=== PATIENT | female | born 1980 | race Caucasian/White ===

== ENCOUNTER 2016-11-12 10:53 | Emergency (ER) | payer MEDICAID ==
[2016-11-12] MEDS ORDERED: ONDANSETRON 4 MG/2 ML VIAL IVP STA (11:18)
[2016-11-12] MEDS ORDERED: HYDROmorphone 1 MG/ML SYRINGE IVP STA (11:18)
[2016-11-12] MEDS ORDERED: SODIUM CHLORIDE 0.9% 1,000 ML IV ONE (11:19)
[2016-11-12] MEDS ORDERED: HYDROmorphone 1 MG/ML SYRINGE ONE (11:49)
[2016-11-12] MEDS ORDERED: ONDANSETRON 4 MG/2 ML VIAL ONE (11:49)
== END 2016-11-12 14:04 | disposition home or self-care (01) ==
DX: R10.31 Right lower quadrant pain (principal); J45.909 Unspecified asthma, uncomplicated; M79.7 Fibromyalgia
CPT/HCPCS: 36415; 74176; 80053; 81003; 81025; 83690; 85025; 96361; 96374; 96375; 99284; J1170

== ENCOUNTER 2016-12-25 15:03 | Emergency (ER) | payer MEDICAID ==
[2016-12-25 15:10] VITALS: BP 134/78
[2016-12-25] MEDS ORDERED: PHENAZOPYRIDINE 100 MG TABLET PO STA (15:21)
--- NOTE | 2016-12-25 15:23 | ED Physician Documentation ---
History of Present Illness - Stated complaint Stated Complaint: AB PX/BACK PX - Chief complaint Chief Complaint: UTI - Additonal information Additional information: hx from pt 35 y/o female 1 wk fever nausea dysuria diffuse L > R abd pain, tiffanie flank pain - sx c/w prior pyelo LMP now no vag dc monogamous relationship, she and partner both recently tested and neg for STD denies preg s.p tubal, D&c, c sections, LEEP Review of Systems Constitutional: reports: Fever Cardiac: denies: Chest pain / pressure Respiratory: denies: Dyspnea GI: reports: Abdominal Pain, Nausea. denies: Vomiting : reports: Dysuria, Hesitancy, Control (tubal). 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: Miscarriage(s) : Chronic bladder infection HEENT: None Psych: Depression, Anxiety Musculoskeletal: Fibromyalgia Derm: None - Past Surgical History Past Surgical History: Yes /GOLD MINER BLASTING: section, Dilation and currettage - Present Medications Home Medications: Ambulatory Orders Medication Instructions Recorded Confirmed Cetirizine [ZyrTEC] 1 tab PO DAILY 11/12/16 11/12/16 Fexofenadine/Pseudoephedrine 1 tab PO DAILY 11/12/16 11/12/16 [Ml-D 24 Hour Tablet] HYDROcod/ACETAM 5/325 [[place] 5/325] 1 - 2 ea PO Q6H PRN #20 tablet 11/12/16 Ibuprofen [Motrin] 400 mg PO Q6H PRN #30 tablet 12/25/16 Ondansetron Odt [Zofran] 4 mg TL Q6H PRN #10 tablet 12/25/16 - Allergies Allergies/Adverse Reactions: Allergies Allergy/AdvReac Type Severity Reaction Status Date / Time iodine Allergy Intermediate Rash Verified 11/12/16 11:04 Penicillins Allergy Intermediate Rash Verified 11/12/16 11:04 - Social History Does the pt smoke?: No Smoking Status: Never smoker Does the pt drink ETOH?: Yes Does the pt have substance abuse?: No - Immunizations Immunizations are current?: Yes - POLST Patient has POLST: No PD ED PE NORMAL - Vitals Vital signs reviewed: Yes - Neck Neck: Supple, no meningeal sign - Cardiac Cardiac: RRR - Respiratory Respiratory: No respiratory distress, Clear bilaterally - Abdomen Abdomen: Soft, Other (mild diffuseL mid abd > rest, no rebound or guarding) - Female Female : Deferred (denies vag dc and low risk for STD by hx (recently tested for same) will add on urine STD with pt permission) - Back Back: No CVA TTP (mild R CVA TTP) - Neuro Neuro: Alert and oriented X 3 - Psych Psych: Normal mood Results - Vitals Vitals: Vital Signs - 24 hr 12/25/16 15:08 Temperature 37 C Heart Rate 93 Respiratory 22 Rate Blood Pressure 134/78 H O2 Saturation 98 Oxygen O2 Source Room air - Labs Labs: Laboratory Tests 12/25/16 12/25/16 12/25/16 15:30 16:35 16:35 WBC 11.0 H RBC 4.24 Hgb 13.9 Hct 39.1 MCV 92.3 MCH 32.7 H MCHC 35.4 RDW 12.6 Plt Count 202 MPV 9.9 Neut # 7.3 H Lymph # 2.6 [place] # 0.7 Eos # 0.2 Baso # 0.1 Absolute Nucleated RBC 0.00 Nucleated RBCs 0.0 Sodium 138 Potassium 4.0 Chloride 104 Carbon Dioxide 27 Anion Gap 7.0 BUN 13 Creatinine 0.8 Estimated GFR (MDRD) 82 L Glucose 95 Calcium 8.7 Total Bilirubin 0.5 AST 19 ALT 21 Alkaline Phosphatase 65 Total Protein 7.3 Albumin 4.0 Globulin 3.3 Albumin/Globulin Ratio 1.2 Lipase 27 Urine Color YELLOW Urine Clarity CLEAR Urine pH 7.5 Ur Specific [place] 1.020 Urine Protein TRACE Urine Glucose (UA) NEGATIVE Urine Ketones NEGATIVE Urine Occult Blood TRACE-INTA Urine Nitrite NEGATIVE Urine Bilirubin NEGATIVE Urine Urobilinogen 0.2 (NORMAL) Ur Leukocyte Esterase NEGATIVE Ur Microscopic Review NOT INDICATED Urine Culture Comments NOT INDICATED Urine HCG, Qual NEGATIVE - Rads (name of study) CT abd pelvis Radiology: See rad report (no acute process) PD MEDICAL DECISION MAKING - ED course ED course: UA neg will need further eval of her abd pain ordered labs and CT Departure - Departure Disposition: 01 Home, Self Care Clinical Impression: Abdominal pain Qualifiers: Abdominal location: left lower quadrant Qualified Code(s): R10.32 - Left lower quadrant pain Condition: Fair Instructions: ED Abdominal Pain Unkn Cause Follow-Up: Iqra Lopez ARNP [Primary Care Provider] - (for a recheck next week unless completely better) Prescriptions: Ibuprofen [Motrin] 400 mg PO Q6H PRN #30 tablet PRN Reason: Pain Ondansetron Odt [Zofran] 4 mg TL Q6H PRN #10 tablet PRN Reason: Nausea / Vomiting Comments: All of the tests today came back fine. The urine showed no sign of a kidney infection The blood work including kidney liver and pancreas function was fine. The CT scan did not show any gallstones or kidney stones, no pancreatitis, no aneurysm, no bowel infection/perforation/obstruction, no internal bleeding or free fluid, normal size ovaries I am not sure what is causing the pain But given the extensive and reassuring workup, I do not think you need surgery or admission or antibiotics. I think it is safe for you to go home and to get any further work up as an outpatient It is very possible that over time, new or changing symptoms may develop that lead to a diagnosis not presently apparent. That is why close follow up with your PMD for a recheck is very important I do not recommend any strong pain killers because I do not want to mask changing or worsening symptoms - recommend motrin and tylenol for pain and zofran as needed for nausea or vomiting Also please follow up with your PMD about your blood pressure - it was high today Forms: Activity restrictions
[2016-12-25] MEDS ORDERED: PHENAZOPYRIDINE 100 MG TABLET PO ONE (15:28)
[2016-12-25 15:42] LABS: BILIRUBIN,URINE NEGATIVE (NEGATIVE); PH,URINE 7.5 PH (5.0-7.5)
[2016-12-25 15:45] LABS: HCG UR QUAL NEGATIVE; UA CHARGE (STRIP ONLY) YES; UR CULTURE IF IND NOT INDICATED
[2016-12-25] MEDS ORDERED: KETOROLAC 60 MG/2 ML VIAL IVP STA (16:25)
[2016-12-25] MEDS ORDERED: KETOROLAC 30 MG/ML VIAL ONE (16:27)
[2016-12-25 16:47] LABS: BASOPHILS # (AUTO) 0.1 10^3/uL (0.0-0.1); BASOPHILS % (AUTO) 0.8 %; EOSINOPHILS # (AUTO) 0.2 10^3/uL (0.0-0.7); EOSINOPHILS % (AUTO) 2.1 %; HCT - HEMATOCRIT 39.1 % (37.0-47.0); HGB - HEMOGLOBIN 13.9 g/dL (12.0-16.0); LYMPHOCYTES # (AUTO) 2.6 10^3/uL (1.5-3.5); MEAN CORPUSCULAR HEMOGLOBIN 32.7 pg (27.0-31.0); MEAN CORPUSCULAR HGB CONC 35.4 g/dL (32.0-36.0); MEAN CORPUSCULAR VOLUME 92.3 fL (81.0-99.0); MEAN PLATELET VOLUME 9.9 fL (7.9-10.8); MONOCYTES # (AUTO) 0.7 10^3/uL (0.0-1.0); MONOCYTES % (AUTO) 6.6 %; NEUTROPHILS # (AUTO) 7.3 10^3/uL (1.5-6.6); NEUTROPHILS % (AUTO) 66.5 %; RED BLOOD COUNT 4.24 10^6/uL (4.20-5.40); RED CELL DISTRIBUTION WIDTH 12.6 % (12.0-15.0)
[2016-12-25 16:59] LABS: ALBUMIN/GLOBULIN RATIO 1.2 (1.0-2.2); BILIRUBIN,TOTAL 0.5 mg/dL (0.2-1.0); CALCIUM 8.7 mg/dL (8.5-10.3); CREATININE 0.8 mg/dL (0.4-1.0); TOTAL PROTEIN 7.3 g/dL (6.7-8.2)
--- NOTE | 2016-12-25 17:41 | CT Preliminary Report ---
Exam: CT Abdomen/Pelvis W/O IMPRESSION: No calculi or evidence of obstruction along the genitourinary tracts. Within the limits of noncontras t examination, no altered acute process identified to explain abdominal flank pain. [facility] SITE ID: [id number]
--- NOTE | 2016-12-25 17:44 | CT Report ---
EXAM: CT ABDOMEN AND PELVIS (CT KUB) EXAM DATE: 12/25/2016 04:54 PM. CLINICAL HISTORY: Left abdominal and flank pain. COMPARISONS: 11/12/2016. TECHNIQUE: Routine axial helical CT imaging was performed through the abdomen and pelvis without IV c ontrast. Reconstructions: Coronal and sagittal. In accordance with CT protocol optimization, one or more of the following dose reduction techniques w ere utilized for this exam: automated exposure control, adjustment of mA and/or KV based on patient s ize, or use of iterative reconstructive technique. FINDINGS: Lung Bases: Tiny calcified granuloma in the right lower lobe. Mild dependent atelectasis in the right lower lobe. Right Kidney/Ureter: No stones, hydronephrosis, or hydroureter. No perinephric fat stranding. Left Kidney/Ureter: No stones, hydronephrosis, or hydroureter. No perinephric fat stranding. Other Solid Organs: Noncontrast images of the solid organs are grossly unremarkable. Gallbladder/Bile Ducts: Unremarkable. Peritoneal Cavity: The bowel is grossly unremarkable, without evident focal wall thickening or adjace nt mesenteric fat stranding to suggest acute inflammatory process, or evidence of bowel obstruction. The appendix is normal. No free fluid, pneumoperitoneum, or janki adenopathy. Pelvic Organs: No bladder stones or wall thickening. Noncontrast images of the visualized pelvic orga ns are unremarkable. Vasculature: Unremarkable. Bones: Unremarkable. Other: Unchanged small fat-containing hernia, without evidence of inflammation. IMPRESSION: No calculi or evidence of obstruction along the genitourinary tracts. Within the limits of noncontras t examination, no altered acute process identified to explain abdominal flank pain. [facility] Referring Provider Line: [phone] SITE ID: [id number]
== END 2016-12-25 18:45 | disposition home or self-care (01) ==
LOC: ED 15:03
DX: R10.32 Left lower quadrant pain (principal); R11.0 Nausea; R03.0 Elevated blood-pressure reading, without diagnosis of hypertension
CPT/HCPCS: 36415; 74176; 80053; 81003; 81025; 83690; 85025; 87491; 87591; 96374; 99283; 99284; A9270; 81001; 87086

== ENCOUNTER 2017-01-31 20:37 | Emergency (ER) | payer MEDICAID ==
[2017-01-31] MEDS ORDERED: SODIUM CHLORIDE 0.9% 1,000 ML IV ONE (22:20)
--- NOTE | 2017-01-31 22:21 | ED Physician Documentation ---
PD HPI NVD - Stated complaint Stated Complaint: DIARRHEA X'S 1 WK - Chief complaint Chief Complaint: Abd Pain - History obtained from History obtained from: Patient - History of Present Illness Timing - onset: How many weeks ago (1) Timing - duration: Weeks (1) Timing - details: Still present Associated symptoms: No: Fever Contributing factors: Travel Similar symptoms before: Has not had sx before - Additonal information Additional information: The patient is a 36-year-old female who recently returned from a trip to [facility]. She presents with diarrhea that started the day before she left [facility], and discontinued for the past week. She has had numerous episodes of watery diarrhea. She denies fever or vomiting, but has had mild nausea, and mild associated cramping abdominal discomfort. She denies history of similar symptoms in the past. Her child who is traveling with her has not become ill with similar symptoms. Review of Systems Constitutional: denies: Fever Nose: denies: Congestion Throat: denies: Sore throat Cardiac: denies: Chest pain / pressure Respiratory: denies: Dyspnea, Cough GI: reports: Abdominal Pain (Mild cramping pain.), Nausea (mild), Diarrhea. denies: Vomiting : denies: Dysuria Skin: denies: Rash Musculoskeletal: denies: Back pain Neurologic: denies: Focal weakness, Numbness, Syncope, Headache PD PAST MEDICAL HISTORY - Past Medical History Cardiovascular: None Respiratory: None, Asthma Neuro: Headache/migraine, Motion sickness Endocrine/Autoimmune: None GI: None [employer]: Miscarriage(s) : Chronic bladder infection HEENT: None Psych: Depression, Anxiety Musculoskeletal: Fibromyalgia Derm: None - Past Surgical History Past Surgical History: Yes /[employer]: section, Dilation and currettage - Present Medications Home Medications: Ambulatory Orders Medication Instructions Recorded Confirmed Cetirizine [ZyrTEC] 1 tab PO DAILY 11/12/16 11/12/16 Fexofenadine/Pseudoephedrine 1 tab PO DAILY 11/12/16 11/12/16 [Ml-D 24 Hour Tablet] HYDROcod/ACETAM 5/325 [[place] 5/325] 1 - 2 ea PO Q6H PRN #20 tablet 11/12/16 Ibuprofen [Motrin] 400 mg PO Q6H PRN #30 tablet 12/25/16 Ondansetron Odt [Zofran] 4 mg TL Q6H PRN #10 tablet 12/25/16 Loperamide [Imodium] 2 mg PO BID PRN #10 capsule 02/01/17 - Allergies Allergies/Adverse Reactions: Allergies Allergy/AdvReac Type Severity Reaction Status Date / Time iodine Allergy Intermediate Rash Verified 01/31/17 21:28 Penicillins Allergy Intermediate Rash Verified 01/31/17 21:28 - Social History Does the pt smoke?: No Smoking Status: Never smoker Does the pt drink ETOH?: Yes Does the pt have substance abuse?: No - Immunizations Immunizations are current?: Yes - POLST Patient has POLST: No PD ED PE NORMAL - Vitals Vital signs reviewed: Yes (normal) - General General: Alert and oriented X 3, Well developed/nourished - HEENT HEENT: Atraumatic, EOMI, Pharynx benign - Neck Neck: Supple, no meningeal sign, No adenopathy - Cardiac Cardiac: RRR, No murmur - Respiratory Respiratory: No respiratory distress, Clear bilaterally - Abdomen Abdomen: Normal bowel sounds, Soft, Non tender, No organomegaly - Back Back: No CVA TTP - Derm Derm: No rash - Extremities Extremities: No edema, No calf tenderness / cord - Neuro Neuro: Alert and oriented X 3, No motor deficit, Normal speech Results - Vitals Vitals: Vital Signs - 24 hr 02/01/17 02/01/17 00:24 01:30 Temperature 36.5 C Heart Rate 97 92 Respiratory 14 14 Rate Blood Pressure 123/75 134/85 H O2 Saturation 96 100 Oxygen O2 Source Room air - Labs Labs: Microbiology 01/31/17 23:25 Campylobacter Antigen Assay - Final Stool Stool Culture - Preliminary Laboratory Tests 01/31/17 01/31/17 22:58 22:58 WBC 11.1 H RBC 4.62 Hgb 14.3 Hct 41.1 MCV 88.8 MCH 30.9 MCHC 34.7 RDW 12.0 Plt Count 221 MPV 9.9 Neut # 7.4 H Lymph # 2.8 [place] # 0.7 Eos # 0.2 Baso # 0.0 Absolute Nucleated RBC 0.00 Nucleated RBCs 0.0 Sodium 137 Potassium 3.6 Chloride 102 Carbon Dioxide 25 Anion Gap 10.0 BUN 13 Creatinine 0.8 Estimated GFR (MDRD) 82 L Glucose 95 Calcium 9.4 Total Bilirubin 0.4 AST 20 ALT 25 Alkaline Phosphatase 68 Total Protein 8.1 Albumin 4.3 Globulin 3.8 Albumin/Globulin Ratio 1.1 Lipase 43 PD MEDICAL DECISION MAKING - ED course Complexity details: reviewed results, re-evaluated patient, considered differential, d/w patient ED course: The patient's presentation is significant for diarrhea of one week's duration, with onset while traveling in [facility]. She is nontoxic appearing, and is otherwise relatively asymptomatic. CBC is essentially normal with white count of thigh and of normal at 11.1. Chemistry panel is normal. Treatment in the emergency department included administration of normal saline 1 L IV. A stool sample was collected, and results are pending. She is being discharged with prescription for Imodium. I discussed with her the results of her workup, symptomatic treatment and outpatient follow-up, as well as potentially worrisome signs or symptoms that should prompt reevaluation in the emergency department. Departure - Departure Disposition: 01 Home, Self Care Clinical Impression: Diarrhea in adult patient Instructions: ED Diet Vomiting Diarrhea Follow-Up: Iqra Lopez ARNP [Primary Care Provider] - Prescriptions: Loperamide [Imodium] 2 mg PO BID PRN #10 capsule PRN Reason: Diarrhea Comments: 1. Drink plenty of fluids. 2. You can use Imodium as prescribed if needed for persistent diarrhea. 3. Follow up with your primary physician within one week. Call to schedule an appointment. 4. Return to the emergency department if you develop increasing abdominal pain, dehydration, or otherwise worsening symptoms. Discharge Date/Time: 02/01/17 01:34
[2017-01-31 23:07] LABS: BASOPHILS % (AUTO) 0.4 %; EOSINOPHILS # (AUTO) 0.2 10^3/uL (0.0-0.7); EOSINOPHILS % (AUTO) 1.8 %; HCT - HEMATOCRIT 41.1 % (37.0-47.0); HGB - HEMOGLOBIN 14.3 g/dL (12.0-16.0); LYMPHOCYTES # (AUTO) 2.8 10^3/uL (1.5-3.5); MEAN CORPUSCULAR HEMOGLOBIN 30.9 pg (27.0-31.0); MEAN CORPUSCULAR HGB CONC 34.7 g/dL (32.0-36.0); MEAN CORPUSCULAR VOLUME 88.8 fL (81.0-99.0); MEAN PLATELET VOLUME 9.9 fL (7.9-10.8); MONOCYTES # (AUTO) 0.7 10^3/uL (0.0-1.0); MONOCYTES % (AUTO) 6.3 %; NEUTROPHILS # (AUTO) 7.4 10^3/uL (1.5-6.6); NEUTROPHILS % (AUTO) 66.5 %; RED BLOOD COUNT 4.62 10^6/uL (4.20-5.40); UNCORRECTED WHITE BLOOD COUNT 11.1 x10^3/uL; WHITE BLOOD COUNT 11.1 x10^3/uL (4.8-10.8)
[2017-01-31 23:19] LABS: ALBUMIN/GLOBULIN RATIO 1.1 (1.0-2.2); BILIRUBIN,TOTAL 0.4 mg/dL (0.2-1.0); CALCIUM 9.4 mg/dL (8.5-10.3); CREATININE 0.8 mg/dL (0.4-1.0); POTASSIUM 3.6 mmol/L (3.5-5.0); TOTAL PROTEIN 8.1 g/dL (6.7-8.2)
[2017-02-01 01:34] VITALS: BP 134/85
== END 2017-02-01 01:34 | disposition home or self-care (01) ==
LOC: ED 20:37
DX: R19.7 Diarrhea, unspecified (principal)
CPT/HCPCS: 36415; 80053; 83690; 85025; 87045; 87046; 87077; 96360; 99283

== ENCOUNTER 2017-02-05 10:02 | Outpatient (CLI) | payer MEDICAID ==
[2017-02-09 14:51] LABS: TEST RESULT REPORT (())
== END 2017-02-05 10:03 | disposition home or self-care (01) ==
LOC: LAB.N 10:02
PROVIDERS: ATTEND Physician Assistant
DX: R19.7 Diarrhea, unspecified (principal)
CPT/HCPCS: 81599; 83630; 87045; 87046; 87177; 87209; 87329; 87338

== ENCOUNTER 2017-05-30 15:15 | Emergency (ER) | payer MEDICAID ==
[2017-05-30] MEDS ORDERED: diphenhydrAMINE INJ 50 MG/ML VIAL IM STA (15:58)
[2017-05-30] MEDS ORDERED: KETOROLAC 60 MG/2 ML VIAL IM STA (15:58)
[2017-05-30] MEDS ORDERED: PROCHLORPERAZINE 10 MG/2 ML VIAL IM STA (15:58)
--- NOTE | 2017-05-30 16:05 | ED Physician Documentation ---
PD HPI HEADACHE - Stated complaint Stated Complaint: HEADACHE - Chief complaint Chief Complaint: Neuro - History obtained from History obtained from: Patient, Family - History of Present Illness Timing - onset: Today Timing - onset during: Sleep Timing - duration: Days (1) Timing - details: Other (awoke with this headache) Pain level max: 8 Pain level now: 8 Location: Left Quality: Throbbing, Aching. No: [place] Associated symptoms: Nausea. No: Fever, Stiff neck, Vomiting, Weakness, Numbness, Syncope, Seizure Improved by: Rest, Dark room, Meds (maxalt) Worsened by: Light, Noise, Moving Contributing factors: No: Anticoagulated, Possible carbon monoxide, Recent illness, Trauma Similar symptoms before: Diagnosis (migraine) Review of Systems Ten Systems: 10 systems reviewed and negative Constitutional: denies: Fever, Chills Eyes: reports: Photophobia Ears: denies: Ear pain Nose: denies: Rhinorrhea / runny nose, Congestion Throat: denies: Sore throat Cardiac: denies: Chest pain / pressure Respiratory: denies: Cough GI: reports: Nausea. 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: Miscarriage(s) : Chronic bladder infection HEENT: None Psych: Depression, Anxiety Musculoskeletal: Fibromyalgia Derm: None - Past Surgical History Past Surgical History: Yes /BARGEMAN: section, Dilation and currettage - Present Medications Home Medications: Ambulatory Orders Medication Instructions Recorded Confirmed Cetirizine [ZyrTEC] 1 tab PO DAILY 11/12/16 05/30/17 Fexofenadine/Pseudoephedrine 1 tab PO DAILY 11/12/16 05/30/17 [Ml-D 24 Hour Tablet] HYDROcod/ACETAM 5/325 [[place] 5/325] 1 - 2 ea PO Q6H PRN #20 tablet 11/12/1607/04 Rizatriptan Benzoate [Maxalt] 5 mg PO DAILY PRN 05/30/17 05/30/17 - Allergies Allergies/Adverse Reactions: Allergies Allergy/AdvReac Type Severity Reaction Status Date / Time iodine Allergy Intermediate Rash Verified 05/30/17 15:26 Penicillins Allergy Intermediate Rash Verified 05/30/17 15:26 - Social History Does the pt smoke?: No Smoking Status: Never smoker Does the pt drink ETOH?: Yes Does the pt have substance abuse?: No - Immunizations Immunizations are current?: Yes - POLST Patient has POLST: No PD ED PE NORMAL - Vitals Vital signs reviewed: Yes - General General: Alert and oriented X 3, No acute distress, Well developed/nourished, Other (lying in darkened room with sunglasses on) - HEENT HEENT: PERRL, Moist mucous membranes, Pharynx benign - Neck Neck: Supple, no meningeal sign - Cardiac Cardiac: RRR - Respiratory Respiratory: No respiratory distress, Clear bilaterally - Abdomen Abdomen: Soft, Non tender, Non distended - Derm Derm: Warm and dry, No rash - Extremities Extremities: No edema - Neuro Neuro: Alert and oriented 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, 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 Given Toradol, Benadryl, Compazine. Headache resolved. She is well-appearing, nontoxic. Afebrile. No evidence of subarachnoid hemorrhage, tumor. Normal neurological exam. Patient counseled regarding signs and symptoms for which I believe and urgent re-evaluation would be necessary. Patient with good understanding of and agreement to plan and is comfortable going home at this time. is driving. This document was made in part using voice recognition software. While efforts are made to proofread this document, sound alike and grammatical errors may occur. Departure - Departure Disposition: Home, Self Care Clinical Impression: Migraine Qualifiers: Migraine type: unspecified Status migrainosus presence: without status migrainosus Intractability: not intractable Qualified Code(s): G43.909 - Migraine, unspecified, not intractable, without status migrainosus Condition: Good Instructions: ED Headache Migraine Follow-Up: Iqra Lopez ARNP [Primary Care Provider] - As Needed Comments: Return if you worsen. Do not drive tonight Forms: Activity restrictions Discharge Date/Time: 05/30/17 17:20
[2017-05-30] MEDS ORDERED: KETOROLAC 60 MG/2 ML VIAL ONE (16:12)
[2017-05-30] MEDS ORDERED: diphenhydrAMINE INJ 50 MG/ML VIAL ONE (16:12)
[2017-05-30] MEDS ORDERED: PROCHLORPERAZINE 10 MG/2 ML VIAL ONE (16:12)
[2017-05-30 16:53] VITALS: BP 107/60
== END 2017-05-30 17:20 | disposition home or self-care (01) ==
LOC: ED 15:15
DX: G43.909 Migraine, unspecified, not intractable, without status migrainosus (principal)
CPT/HCPCS: 96372; 99283

== ENCOUNTER 2017-06-02 17:38 | Emergency (ER) | payer MEDICAID ==
[2017-06-02 17:58] VITALS: BP 115/80
== END 2017-06-02 18:03 | disposition left against medical advice (07) ==
LOC: ED 17:38
DX: Z53.21 Procedure and treatment not carried out due to patient leaving prior to being seen by health care provider (principal)

== ENCOUNTER 2017-12-25 21:30 | Emergency (ER) | payer MEDICAID ==
[2017-12-25 21:37] VITALS: BP 131/81
[2017-12-25 22:08] LABS: BILIRUBIN,URINE NEGATIVE (NEGATIVE); GLUCOSE, URINE (UA) NEGATIVE (NEGATIVE); KETONES,URINE (UA) NEGATIVE (NEGATIVE); LEUKOCYTE ESTERASE, URINE NEGATIVE (NEGATIVE); NITRITE,URINE NEGATIVE (NEGATIVE); OCCULT BLOOD,URINE SMALL (NEGATIVE); PH,URINE 7.5 PH (5.0-7.5); PROTEIN,URINE NEGATIVE (NEGATIVE); UROBILINOGEN,URINE 0.2 (NORMAL) E.U./dL (NORMAL)
[2017-12-25 22:11] LABS: CLARITY,URINE HAZY (CLEAR); HCG UR QUAL NEGATIVE
--- NOTE | 2017-12-25 22:21 | ED Physician Documentation ---
PD HPI FEMALE - Stated complaint Stated Complaint: FEMALE - Chief complaint Chief Complaint: Abd Pain - History obtained from History obtained from: Patient - History of Present Illness Timing - onset: How many weeks ago (4) Timing - details: Gradual onset, Intermittant Similar symptoms before: No diagnosis Recently seen: Clinic - Additional information Additional information: Patient is a 36 year old female with a history of fibromyalgia who is presenting to the emergency department for dysuria. According to patient over the last month or so patient has had intermittent episodes of lower bladder pain and dysuria. Patient states that she normally drinks extra fluid and cranberry juice and it goes away. Patient has worked with her pmd, every time she checks the urine there is no sign of infection. 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 and currettage - Present Medications Home Medications: Ambulatory Orders Medication Instructions Recorded Confirmed Rizatriptan Benzoate [Maxalt] 5 mg PO DAILY PRN 05/30/17 06/02/17 Phenazopyridine HCl [Pyridium] 200 mg PO TID PRN #6 tablet 12/25/17 - Allergies Allergies/Adverse Reactions: Allergies Allergy/AdvReac Type Severity Reaction Status Date / Time iodine Allergy Intermediate Rash Verified 06/02/17 17:57 Penicillins Allergy Intermediate Rash Verified 06/02/17 17:57 - Social History Does the pt smoke?: No Smoking Status: Never smoker Does the pt drink ETOH?: Yes Does the pt have substance abuse?: No - Immunizations Immunizations are current?: Yes - POLST Patient has POLST: No PD ED PE NORMAL - Vitals Vital signs reviewed: Yes - General General: Alert and oriented X 3, No acute distress - HEENT HEENT: Atraumatic - Neck Neck: Supple, no meningeal sign - Cardiac Cardiac: RRR - Respiratory Respiratory: No respiratory distress - Abdomen Abdomen: Non tender - Female Female : Deferred - Derm Derm: Normal color, Warm and dry - Extremities Extremities: No deformity - Neuro Neuro: Alert and oriented X 3 Eye Opening: Spontaneous Results - Vitals Vitals: Vital Signs - 24 hr 12/25/17 21:34 Temperature 36.3 C L Heart Rate 82 Respiratory 18 Rate Blood Pressure 131/81 H O2 Saturation 100 Oxygen O2 Source Room air - Labs Labs: Laboratory Tests 12/25/17 21:58 Urine Color YELLOW Urine Clarity HAZY Urine pH 7.5 Ur Specific [place] 1.015 Urine Protein NEGATIVE Urine Glucose (UA) NEGATIVE Urine Ketones NEGATIVE Urine Occult Blood SMALL H Urine Nitrite NEGATIVE Urine Bilirubin NEGATIVE Urine Urobilinogen 0.2 (NORMAL) Ur Leukocyte Esterase NEGATIVE Urine RBC 0-5 Urine WBC 0-3 Ur Squamous Epith Cells FEW Squamous Amorphous Sediment Few Urine Bacteria Rare Ur Microscopic Review INDICATED Urine Culture Comments NOT INDICATED Urine HCG, Qual NEGATIVE PD MEDICAL DECISION MAKING - ED course Complexity details: reviewed old records, reviewed results, re-evaluated patient , considered differential, d/w patient, d/w family ED course: Patient was seen and examined at bedside. patient was well appearing and in no distress. urine was collected and again showed no signs of infection. patient' s symptoms were more consistent with interstitial cystitis. Patient was given detailed discharge and follow up instructions and was stable for discharge with outpatient follow up. - Sepsis Event Vital Signs: Vital Signs - 24 hr 12/25/17 21:34 Temperature 36.3 C L Heart Rate 82 Respiratory 18 Rate Blood Pressure 131/81 H O2 Saturation 100 Oxygen O2 Source Room air Departure - Departure Disposition: 01 Home, Self Care Clinical Impression: Interstitial cystitis Condition: Good Instructions: Cystitis Interstitial Life Changes Follow-Up: [facility] [Provider Group] Prescriptions: Phenazopyridine HCl [Pyridium] 200 mg PO TID PRN #6 tablet PRN Reason: dysuria Comments: Your diagnostics today were within normal limits. Your symptoms could be caused by interstitial cystitis. You should try the dietary changes, (decrease acidic foods, spicey foods, coffee). The next step would be a cystoscopy by a urologist. You should follow up with your doctor to schedule speciality care. you may return to the emergency department at any time for new, worsening or uncontrollable symptoms.
[2017-12-25 22:37] LABS: AMORPHOUS SEDIMENT,UR Few /LPF; BACTERIA,URINE Rare /HPF (None Seen); RBC,URINE 0-5 /HPF (0-5); SQUAMOUS EPITHELIAL CELL,UR FEW Squamous (<= Few)
[2017-12-25] MEDS ORDERED: PHENAZOPYRIDINE 100 MG TABLET PO STA (22:58)
[2017-12-25] MEDS ORDERED: IBUPROFEN 600 MG TABLET PO STA (22:58)
== END 2017-12-25 23:16 | disposition home or self-care (01) ==
LOC: ED 21:30
DX: N30.10 Interstitial cystitis (chronic) without hematuria (principal); M79.7 Fibromyalgia; J45.909 Unspecified asthma, uncomplicated
CPT/HCPCS: 81001; 81025; 99283; A9270; 81003; 87086

== ENCOUNTER 2017-12-31 16:43 | Outpatient (CLI) | payer MEDICAID ==
[2017-12-31 19:23] LABS: AMORPHOUS SEDIMENT,UR Marked /LPF; BACTERIA,URINE None Seen /HPF (None Seen); RBC,URINE 0-5 /HPF (0-5); SQUAMOUS EPITHELIAL CELL,UR MOD Squamous (<= Few); WBC CLUMPS,URINE NONE SEEN
== END 2017-12-31 16:44 | disposition home or self-care (01) ==
LOC: LAB.R 16:43
PROVIDERS: ATTEND Family Medicine
DX: R30.0 Dysuria (principal)
CPT/HCPCS: 87086

== ENCOUNTER 2018-01-05 20:33 | Emergency (ER) | payer MEDICAID ==
[2018-01-05 21:20] LABS: BILIRUBIN,URINE NEGATIVE (NEGATIVE); GLUCOSE, URINE (UA) 100 mg/dL (NEGATIVE); KETONES,URINE (UA) NEGATIVE (NEGATIVE); LEUKOCYTE ESTERASE, URINE NEGATIVE (NEGATIVE); NITRITE,URINE POSITIVE (NEGATIVE); OCCULT BLOOD,URINE NEGATIVE (NEGATIVE); PROTEIN,URINE TRACE mg/dL (NEGATIVE); UROBILINOGEN,URINE 2 E.U./dL (NORMAL)
--- NOTE | 2018-01-05 21:22 | ED Physician Documentation ---
PD HPI FEMALE - Stated complaint Stated Complaint: FEMALE /BACK PX - Chief complaint Chief Complaint: Abd Pain - History obtained from History obtained from: Patient - History of Present Illness Timing - onset: How many days ago (few) Timing - duration: Days Timing - details: Gradual onset, Still present, Waxing and waning Associated symptoms: Abdominal pain, Dysuria, Urinary frequency. No: Fever, Vaginal pain, Vaginal discharge, Genital sore/lesion Contributing factors: Sexually active. No: Exposed to STD Recently seen: Clinic, Emergency Dept (had had few visits over few months with dysuria and normal UAs, Dx with presumed interstitial cystitis. recurrent symptoms however and worse the past couple days.) Review of Systems Constitutional: reports: Myalgias. denies: Fever, Chills Nose: denies: Rhinorrhea / runny nose, Congestion Throat: denies: Sore throat Respiratory: denies: Cough GI: reports: Abdominal Pain. denies: Nausea, Vomiting, Diarrhea : reports: Dysuria, Frequency. 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: Miscarriage(s) : Chronic bladder infection HEENT: None Psych: Depression, Anxiety Musculoskeletal: Fibromyalgia Derm: None - Past Surgical History Past Surgical History: Yes /MACHINE FILLER SHREDDER: section, Dilation and currettage - Present Medications Home Medications: Ambulatory Orders Medication Instructions Recorded Confirmed Rizatriptan Benzoate [Maxalt] 5 mg PO DAILY PRN 05/30/17 06/02/17 Phenazopyridine HCl [Pyridium] 200 mg PO TID PRN #6 tablet 12/25/17 Metronidazole [Flagyl] 500 mg PO BID #14 tablet 01/05/18 Sulfamethox/Trimeth 800/160 1 each PO BID #12 tablet 01/05/18 [Bactrim Ds 800/160] - Allergies Allergies/Adverse Reactions: Allergies Allergy/AdvReac Type Severity Reaction Status Date / Time iodine Allergy Intermediate Rash Verified 01/05/18 20:42 Penicillins Allergy Intermediate Rash Verified 01/05/18 20:42 - Social History Does the pt smoke?: No Smoking Status: Never smoker Does the pt drink ETOH?: Yes Does the pt have substance abuse?: No - Immunizations Immunizations are current?: Yes - POLST Patient has POLST: No PD ED PE NORMAL - Vitals Vital signs reviewed: Yes - General General: Alert and oriented X 3, No acute distress, Well developed/nourished - HEENT HEENT: Pharynx benign - Neck Neck: Supple, no meningeal sign, No adenopathy - Cardiac Cardiac: RRR, No murmur - Respiratory Respiratory: Clear bilaterally - Abdomen Abdomen: Normal bowel sounds, Soft, Non tender, Non distended - Female Female : Stencil Cutter present, Other (has normal external exam. Vault with thin mucous/white discharge and slight malodor c/w BV. ) - Rectal Rectal: Deferred - Back Back: Other (mild, more on right) Results - Vitals Vitals: Oxygen O2 Source Room air - Labs Labs: Microbiology 01/05/18 20:07 Wet Prep - Final Genital - Cervix Laboratory Tests 01/05/18 21:10 Urine Color ORANGE Urine Clarity CLEAR Urine pH 7.0 Ur Specific [place] <=1.005 Urine Protein TRACE Urine Glucose (UA) 100 H Urine Ketones NEGATIVE Urine Occult Blood NEGATIVE Urine Nitrite POSITIVE H Urine Bilirubin NEGATIVE Urine Urobilinogen 2 H Ur Leukocyte Esterase NEGATIVE Urine RBC 0-5 Urine WBC 11-25 H Ur Squamous Epith Cells MOD Squamous H Urine Bacteria Few Ur Microscopic Review INDICATED Urine Culture Comments NOT INDICATED Urine HCG, Qual NEGATIVE PD MEDICAL DECISION MAKING - ED course Complexity details: reviewed old records, reviewed results (her urine does look like UTI but would not explain prior episodes with normal UA. So did pelvic as well, with clinically appearance of vaginitis. ), considered differential (had had dysuria without UTI several times. Did not have pelvic exam at any visit. discussed possible vaginitis as cause. and she agreed to pelvic, said had not been offered/discussed previously. ), d/w patient - Sepsis Event Vital Signs: Oxygen O2 Source Room air Departure - Departure Disposition: Home, Self Care Clinical Impression: Dysuria UTI (urinary tract infection) Qualifiers: Urinary tract infection type: acute cystitis Hematuria presence: without hematuria Qualified Code(s): N30.00 - Acute cystitis without hematuria Vaginitis Qualifiers: Chronicity: subacute Qualified Code(s): N76.1 - Subacute and chronic vaginitis Condition: Stable Record reviewed to determine appropriate education?: Yes Instructions: ED UTI Cystitis Female, ED Vaginosis Bacterial Follow-Up: Iqra Lopez ARNP [Primary Care Provider] - Prescriptions: Metronidazole [Flagyl] 500 mg PO BID #14 tablet Sulfamethox/Trimeth 800/160 [Bactrim Ds 800/160] 1 each PO BID #12 tablet Comments: This time your urine actually does have the appearance of a bladder infection. However you have been having a lot of dysuria with normal urines and so it may have been some inflammatory interstitial cystitis. However your pelvic exam does have a mild discharge which is suggestive of a bacterial vaginitis. This can cause the same symptoms. We should treat that with the antibiotic more specific to BV. The culture results from the vaginal exam and the urine will result in 2 or 3 days and will tell us if we need to amend the antibiotic choice. Naproxen twice daily for inflammation. Follow-up with your primary care next week for reevaluation and to follow-up on culture results. Discharge Date/Time: 01/05/18 22:40
[2018-01-05 21:36] LABS: CLARITY,URINE CLEAR (CLEAR); HCG UR QUAL NEGATIVE
[2018-01-05 21:37] LABS: BACTERIA,URINE Few /HPF (None Seen); RBC,URINE 0-5 /HPF (0-5); SQUAMOUS EPITHELIAL CELL,UR MOD Squamous (<= Few)
[2018-01-05] MEDS ORDERED: FLUCONAZOLE 100 MG TABLET PO STA (22:23)
[2018-01-05] MEDS ORDERED: SULFAMETH/TRIMETH DS 800/160 MG TABLET PO STA (22:23)
[2018-01-05] MEDS ORDERED: metroNIDAZOLE 250 MG TABLET PO STA (22:23)
[2018-01-05] MEDS ORDERED: DEXAMETHASONE 10 MG/ML VIAL PO STA (22:29)
[2018-01-05 22:40] VITALS: BP 129/89
== END 2018-01-05 22:40 | disposition home or self-care (01) ==
LOC: ED 20:33
DX: N30.00 Acute cystitis without hematuria (principal); N76.1 Subacute and chronic vaginitis
CPT/HCPCS: 81001; 81025; 87210; 87491; 87591; 99283; A9270; 81003; 87086

== ENCOUNTER 2018-09-29 13:33 | Emergency (ER) | payer MEDICAID ==
[2018-09-29 15:23] LABS: BILIRUBIN,URINE NEGATIVE (NEGATIVE); GLUCOSE, URINE (UA) NEGATIVE (NEGATIVE); KETONES,URINE (UA) TRACE mg/dL (NEGATIVE); LEUKOCYTE ESTERASE, URINE NEGATIVE (NEGATIVE); NITRITE,URINE NEGATIVE (NEGATIVE); OCCULT BLOOD,URINE TRACE-INTA (NEGATIVE); PH,URINE 7.5 PH (5.0-7.5); PROTEIN,URINE NEGATIVE (NEGATIVE); UROBILINOGEN,URINE 0.2 (NORMAL) E.U./dL (NORMAL)
[2018-09-29 15:26] LABS: CLARITY,URINE CLOUDY (CLEAR); HCG UR QUAL NEGATIVE
[2018-09-29 15:34] LABS: RBC,URINE 0-5 /HPF (0-5); SQUAMOUS EPITHELIAL CELL,UR RARE Squamous (<= Few)
[2018-09-29 15:37] LABS: AMORPHOUS SEDIMENT,UR Moderate /LPF; BACTERIA,URINE None Seen /HPF (None Seen)
[2018-09-29] MEDS ORDERED: PROCHLORPERAZINE 10 MG/2 ML VIAL IVP STA (16:26)
[2018-09-29] MEDS ORDERED: KETOROLAC 30 MG/ML VIAL IVP STA (16:26)
[2018-09-29] MEDS ORDERED: diphenhydrAMINE INJ 50 MG/ML VIAL IVP STA (16:26)
[2018-09-29] MEDS ORDERED: SODIUM CHLORIDE 0.9% 1,000 ML IV ONE (16:26)
--- NOTE | 2018-09-29 16:31 | ED Physician Documentation ---
PD HPI HEADACHE - Stated complaint Stated Complaint: MIGRAINE/SYNCOPE - Chief complaint Chief Complaint: Neuro - History obtained from History obtained from: Patient - History of Present Illness Timing - onset: How many days ago (3) Timing - onset during: Rest Timing - duration: Days (3) Timing - details: Gradual onset Pain level max: 8 Pain level now: 8 Worst headache ever?: No: Worst headache ever? Location: Global Quality: Throbbing, Aching. No: Thunderclap Associated symptoms: Nausea. No: Fever, Stiff neck, Vomiting, Weakness, Numbness, Syncope, Seizure, Eye pain, Vision changes Improved by: Rest, Dark room Worsened by: Light, Noise Similar symptoms before: Diagnosis (Chronic migraine headaches) Recently seen: Not recently seen Review of Systems Constitutional: denies: Fever, Chills Ears: denies: Ear pain Nose: denies: Rhinorrhea / runny nose, Congestion Throat: denies: Sore throat Cardiac: denies: Chest pain / pressure, Palpitations Respiratory: denies: Cough GI: reports: Nausea. denies: Diarrhea : denies: Now EGA Musculoskeletal: denies: Neck pain, Back pain Neurologic: reports: Syncope (She states she has been feeling lightheaded when standing, she had an episode of worsening pain and feels like she may have passed out in the bathroom.). 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: Miscarriage(s) : Chronic bladder infection HEENT: None Psych: Depression, Anxiety Musculoskeletal: Fibromyalgia Derm: None - Past Surgical History Past Surgical History: Yes /WARRANT CLERK: section, Dilation and currettage - Present Medications Home Medications: Ambulatory Orders Medication Instructions Recorded Confirmed Rizatriptan Benzoate [Maxalt] 5 mg PO DAILY PRN 05/30/17 06/02/17 Phenazopyridine HCl [Pyridium] 200 mg PO TID PRN #6 tablet 12/25/17 Metronidazole [Flagyl] 500 mg PO BID #14 tablet 01/05/18 Sulfamethox/Trimeth 800/160 1 each PO BID #12 tablet 01/05/18 [Bactrim Ds 800/160] - Allergies Allergies/Adverse Reactions: Allergies Allergy/AdvReac Type Severity Reaction Status Date / Time iodine Allergy Intermediate Rash Verified 09/29/18 13:37 Penicillins Allergy Intermediate Rash Verified 09/29/18 13:37 - Social History Does the pt smoke?: No Smoking Status: Never smoker Does the pt drink ETOH?: Yes ETOH Use: Wine, Beer Does the pt have substance abuse?: No - Immunizations Immunizations are current?: Yes - POLST Patient has POLST: No PD ED PE NORMAL - Vitals Vital signs reviewed: Yes - General General: Alert and oriented X 3, No acute distress, Well developed/nourished - HEENT HEENT: Atraumatic, PERRL, EOMI, Ears normal, Moist mucous membranes, Pharynx benign - Neck Neck: Supple, no meningeal sign - Cardiac Cardiac: RRR, No murmur, Strong equal pulses - Respiratory Respiratory: No respiratory distress, Clear bilaterally - Abdomen Abdomen: Soft, Non tender, Non distended - Derm Derm: Warm and dry, No rash - Extremities Extremities: No edema, No calf tenderness / cord - Neuro Neuro: Alert and oriented X 3, slip sheeter 2-12 intact, No motor deficit, No sensory deficit, Normal speech Eye Opening: Spontaneous Motor: Obeys Commands Verbal: Oriented GCS Score: 15 - Psych Psych: Normal mood, Normal affect Results - Vitals Vitals: Oxygen O2 Source Room air - EKG (time done) 1445 Rate: Rate (enter#) (89) Rhythm: NSR Unity: Normal Intervals: Normal MA QRS: Normal Ischemia: Normal ST segments Computer interpretation: Agree with computer - Labs Labs: Laboratory Tests 09/29/18 15:10 Urine Color YELLOW Urine Clarity CLOUDY Urine pH 7.5 Ur Specific [place] 1.015 Urine Protein NEGATIVE Urine Glucose (UA) NEGATIVE Urine Ketones TRACE Urine Occult Blood TRACE-INTA Urine Nitrite NEGATIVE Urine Bilirubin NEGATIVE Urine Urobilinogen 0.2 (NORMAL) Ur Leukocyte Esterase NEGATIVE Urine RBC 0-5 Urine WBC 0-3 Ur Squamous Epith Cells RARE Squamous Amorphous Sediment Moderate Urine Bacteria None Seen Ur Microscopic Review INDICATED Urine Culture Comments NOT INDICATED Urine HCG, Qual NEGATIVE PD MEDICAL DECISION MAKING - ED course Complexity details: re-evaluated patient, considered differential, d/w patient, d/w family ED course: 37-year-old female with a migraine headache. Treated in the emergency department. Tolerated well. Feels better after fluids and medication for headache. We will have her follow-up with her doctor for further care. No evidence of subarachnoid hemorrhage, tumor, meningitis or encephalitis. Patient counseled regarding signs and symptoms for which I believe and urgent re-e valuation would be necessary. Patient with good understanding of and agreement to plan and is comfortable going home at this time This document was made in part using voice recognition software. While efforts are made to proofread this document, sound alike and grammatical errors may occur. Departure - Departure Disposition: 01 Home, Self Care Clinical Impression: Vasovagal syncope Migraine Qualifiers: Migraine type: unspecified Status migrainosus presence: without status migrainosus Intractability: not intractable Qualified Code(s): G43.909 - Migraine, unspecified, not intractable, without status migrainosus Condition: Good Instructions: ED Headache Migraine, ED Syncope Vasovagal Follow-Up: Iqra Lopez ARNP [Primary Care Provider] - Within 1 week Comments: Go home and rest. Return if you worsen. This should improve with the medications you were given tonight. Discharge Date/Time: 09/29/18 18:08
[2018-09-29 18:07] VITALS: BP 129/91
== END 2018-09-29 18:08 | disposition home or self-care (01) ==
LOC: ED 13:33
DX: G43.909 Migraine, unspecified, not intractable, without status migrainosus (principal); R55 Syncope and collapse
CPT/HCPCS: 81001; 81025; 93005; 96361; 96374; 99283; 99284; J1200; 81003; 87086

== ENCOUNTER 2018-12-18 09:36 | Emergency (ER) | payer MEDICAID ==
[2018-12-18 09:43] VITALS: BP 116/68
[2018-12-18] MEDS ORDERED: HYDROcod/ACETAM 5/325 MG TABLET PO STA (10:00)
--- NOTE | 2018-12-18 10:17 | ED Physician Documentation ---
History of Present Illness - Stated complaint Stated Complaint: RIB PX - Chief complaint Chief Complaint: Back Pain - History obtained from History obtained from: Patient - History of Present Illness Timing: How many days ago (3) Pain level max: 8 Pain level now: 8 - Additonal information Additional information: Patient was running and fell 3 days ago. landed on L side. now increased pain. worse with palpation and better with rest. 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: Miscarriage(s) : Chronic bladder infection HEENT: None Psych: Depression, Anxiety Musculoskeletal: Fibromyalgia Derm: None - Past Surgical History Past Surgical History: Yes /MOLD CHIPPER: section, Dilation and currettage - Present Medications Home Medications: Ambulatory Orders Medication Instructions Recorded Confirmed Rizatriptan Benzoate [Maxalt] 5 mg PO DAILY PRN 05/30/17 06/02/17 Phenazopyridine HCl [Pyridium] 200 mg PO TID PRN #6 tablet 12/25/17 Metronidazole [Flagyl] 500 mg PO BID #14 tablet 01/05/18 Sulfamethox/Trimeth 800/160 1 each PO BID #12 tablet 01/05/18 [Bactrim Ds 800/160] Hydrocodone/Acetaminophen 1 - 2 each PO Q6H PRN #20 tablet 12/18/18 [Hydrocodon-Acetaminophen 5-325] Ibuprofen [Motrin] 800 mg PO Q8H PRN #30 tablet 12/18/18 - Allergies Allergies/Adverse Reactions: Allergies Allergy/AdvReac Type Severity Reaction Status Date / Time iodine Allergy Intermediate Rash Verified 12/18/18 09:43 Penicillins Allergy Intermediate Rash Verified 12/18/18 09:43 - Social History Does the pt smoke?: No Smoking Status: Never smoker Does the pt drink ETOH?: Yes Does the pt have substance abuse?: No - Immunizations Immunizations are current?: Yes - POLST Patient has POLST: No PD ED PE NORMAL - Vitals Vital signs reviewed: Yes - General General: Alert and oriented X 3, No acute distress - HEENT HEENT: Moist mucous membranes - Neck Neck: Supple, no meningeal sign - Cardiac Cardiac: RRR - Respiratory Respiratory: No respiratory distress, Clear bilaterally - Abdomen Abdomen: Soft, Non tender, Non distended - Derm Derm: Warm and dry - Extremities Extremities: Other (TTP L lower ribs. No ecchymosis or crepitus.) - Neuro Neuro: Alert and oriented X 3 - Psych Psych: Normal mood, Normal affect Results - Vitals Vitals: Vital Signs - 24 hr 12/18/18 12/18/18 09:42 10:17 Temperature 36.6 C Heart Rate 68 Respiratory 18 Rate Blood Pressure 116/68 O2 Saturation 99 Oxygen O2 Source Room air - Rads (name of study) L ribs w/ chest Radiology: Prelim report reviewed, EMP read contemporaneously, See rad report (normal) PD MEDICAL DECISION MAKING - ED course Complexity details: reviewed results, considered differential, d/w patient ED course: 37-year-old female with a trip and fall while running. Left-sided rib pain. Read as normal by radiology, but appears to have a nondisplaced fracture on my review of the x-rays. Will treat with pain medication and follow-up with her doctor. Patient counseled regarding signs and symptoms for which I believe and urgent re-evaluation would be necessary. Patient with good understanding of and agreement to plan and is comfortable going home at this time This document was made in part using voice recognition software. While efforts are made to proofread this document, sound alike and grammatical errors may occur. Departure - Departure Disposition: 01 Home, Self Care Clinical Impression: Rib fracture Qualifiers: Encounter type: initial encounter Rib fracture type: single rib Fracture type: closed Laterality: left Qualified Code(s): S22.32XA - Fracture of one rib, left side, initial encounter for closed fracture Condition: Good Instructions: ED Fx Rib Follow-Up: Iqra Lopez ARNP [Primary Care Provider] - Within 1 week Prescriptions: Hydrocodone/Acetaminophen [Hydrocodon-Acetaminophen 5-325] 1 - 2 each PO Q6H PRN #20 tablet PRN Reason: pain Ibuprofen [Motrin] 800 mg PO Q8H PRN #30 tablet PRN Reason: PAIN &/OR FEVER Comments: Return if you worsen. Follow up with your doctor for further care. This will likely hurt for another week or two at least. Do not drink alcohol or drive while on narcotic pain medicine. Note that many narcotic pain relievers also contain tylenol/acetaminophen. Please ensure that your total dose of acetaminophen from all sources does not exceed 3 grams (3000mg) per day. You may constipated on this medication, take a stool softener such as "Colace" twice a day while you are on it. Also recommend a [id number] laxative such as senna or MiraLAX any day that you do not have a bowel movement. If you received narcotic pain medication in the emergency department, do not drive or operate machinery for the next 24 hours.
--- NOTE | 2018-12-18 10:43 | XRAY Report ---
Reason: fall,pain Procedure Date: 12/18/2018 Accession Number: [id number] / [id number] Procedure: XR - Ribs w/PA Chest LT CPT Code: FULL RESULT: EXAM: LEFT RIB RADIOGRAPHY EXAM DATE: 12/18/2018 10:04 AM. CLINICAL HISTORY: Fall, pain. COMPARISON: None. TECHNIQUE: 1 view of the chest and 2 views of the ribs. FINDINGS: Bones: Normal. No fracture or bone lesion. Lungs: No focal opacities. No pneumothorax. No pleural effusions. Mediastinum: Heart and mediastinal contours are unremarkable. Other: None. IMPRESSION: Normal chest and rib radiography. [facility]
== END 2018-12-18 10:54 | disposition home or self-care (01) ==
LOC: ED 09:36
DX: S22.32XA Fracture of one rib, left side, initial encounter for closed fracture (principal); W01.0XXA Fall on same level from slipping, tripping and stumbling without subsequent striking against object, initial encounter; Y93.02 Activity, running
CPT/HCPCS: 71101; 99283; A9270